=== PATIENT | male | born 1990 | race African-American/Black ===

== ENCOUNTER 2017-01-12 05:33 | Emergency (ER) | payer SELFPAY ==
[~2017-01-12] VITALS: Ht 177.8 cm; Wt 68.0 kg
[~2017-01-12 05:33] MED LIST: CYCL10TA9 PO; HYDR-34 PO; NAPR550T PO
[2017-01-12] MEDS ORDERED: RX-GENTAMICIN 0.3% OP OINT 3.5 GM TUBE OP STA (06:18)
[2017-01-12] MEDS ORDERED: RX-NAPROXEN (NAPROSYN) 250 MG TAB PPK#4 PO STA (06:18)
[2017-01-12] MEDS ORDERED: AMOX-358 PO (06:24)
[2017-01-12] MEDS ORDERED: GNT.3OO351 IT (06:24)
[2017-01-12] MEDS ORDERED: NAPR500T3 PO (06:24)
[2017-01-12] MEDS ORDERED: LIDO15SO2 MM (06:24)
--- NOTE | 2017-01-12 06:24 | ED EENT ---
History of Present Illness General Chief Complaint: Eye Problems Stated Complaint: EYE IRRIATION (BUG IN EYE), SWOLLEN JAW Nursing Triage Note: Pt. advises yesterday morning that a bug flew into his right eye. He states since the incident his eye has become progressively more swollen and painful. He also advises that he is experiencing right sided jaw pain. Source: patient History of Present Illness Time seen by provider: 06:02 Initial Comments PT STATES YESTERDAY MORNING, A BUG FLEW IN HIS RIGHT EYE WHILE HE WAS OUTSIDE SINCE THEN, HE HAS HAD PAIN, REDNESS, SWELLING, DRAINAGE AND MATTING TO RIGHT EYE NO VISION CHANGES SWELLING HAS GONE DOWN AROUND THE EYE, BUT WAS MATTED SHUT THIS AM AND COULDN'T SLEEP DUE TO EYE PAIN NO PRIOR PROBLEMS WITH EYES, DOES NOT WEAR GLASSES OR CONTACTS ALSO HAS HAD PAIN TO RIGHT LOWER MOLAR AND SWELLING TO LOWER JAW SINCE YESTERDAY WELL NO FEVER NO URI SYMPTOMS DOES NOT GO TO DENTIST PCP: [facility] Allergies and Home Medications Allergies Coded Allergies: No Known Drug Allergies (Unverified , 11/11/13) Home Medications Amoxicillin/Potassium Clav 1 Each Tablet, 1 EACH PO BID, #20 Prescribed by: PETEY ZIMMER on 01/12/17623 Cyclobenzaprine Hcl 10 Mg Tablet, 1 EACH PO TID, #14 Prescribed by: KIM CORONEL on 08/18/14 184 Gentamicin Sulfate 3.5 Gm Oint...g., 0.5 INCH IT QID, #3.5 Prescribed by: PETEY ZIMMER on 01/12/17623 Lidocaine HCl 15 Ml Solution, 5 ML MM Q 1-2 HOURS, #30 Prescribed by: PETEY ZIMMER on 01/12/17623 Naproxen 500 Mg Tablet, 500 MG PO BID, #20 Prescribed by: PETEY ZIMMER on 01/12/1724 Naproxen Sodium 550 Mg Tablet, 550 MG PO BID, #10 Prescribed by: KIM CORONEL on 08/18/14 184 Review of Systems Constitutional: no symptoms reported Eyes: See HPI, Denies Blurred Vision, Drainage, Foreign Body Sensation, Inflammation, Pain, Denies Photophobia, Denies Contact Lenses, Denies Glasses Ears: No Symptoms Reported Nose: no symptoms reported Mouth: see HPI, pain Throat: no symptoms reported Respiratory: no symptoms reported Cardiovascular: no symptoms reported Gastrointestinal: no symptoms reported Musculoskeletal: no symptoms reported Skin: no symptoms reported Neurological: No Symptoms Reported Hematologic/Lymphatic: No Symptoms Reported Immunological/Allergic: no symptoms reported Past Hcbwjuw-Btolha-Hvdcwl Hx Patient Social History Alcohol Use: Occasionally Uses Recreational Drug Use: No Smoking Status: Former Smoker Type Used: Cigarettes Recent Foreign Travel: No Contact w/Someone Who Travel: No Recent Infectious Disease Expo: No Recent Hopitalizations: No Seasonal Allergies Seasonal Allergies: No Surgeries HX Surgeries: Yes (ACL repair) Surgeries: Orthopedic Respiratory Hx Respiratory Disorders: No Cardiovascular Hx Cardiac Disorders: No Neurological Hx Neurological Disorders: No Genitourinary Hx Genitourinary Disorders: No Gastrointestinal Hx Gastrointestinal Disorders: No Musculoskeletal Hx Musculoskeletal Disorders: Yes (RIGHT KNEE ACL TEAR) Endocrine Hx Endocrine Disorders: No HEENT HX ENT Disorders: No Cancer Hx Cancer: No Psychosocial Hx Psychiatric Problems: No Integumentary HX Skin/Integumentary Disorder: No Blood Transfusions Hx Blood Disorders: No Physical Exam Vital Signs Vital Sign - Last 12Hours 01/12/17 06:06 Temp 98.4 Pulse 78 Resp 14 B/P (MAP) 133/93 Pulse Ox 97 O2 Delivery Room Air General Appearance: WD/WN, no apparent distress Eyes: right eye other (RIGHT CONJUCTIVA MARKEDLY INFLAMED, WITH PURULENT DRAINAGE AND SOME MATTING TO EYE. NO FOREIGN BODY NOTED. FLUORESCEIN STAIN DONE. ), left eye normal inspection, bilateral eye EOMI, bilateral eye PERRL Nose: normal inspection Mouth/Throat: other (RIGHT LOWER PREMOLAR DECAYED DOWN TO GUM WITH MODERATE SWELLING AND ERYTHEMA TO SURROUNDING GUM TISSUE. ALSO WITH MODERATE SWELLING TO RIGHT MANDIBLE. NO DISCRETE AREAS OF FLUCTUANCE. HAS EXTENSIVE DENTAL DECAY TO MANY TEETH ) Neck: non-tender, full range of motion, supple, lymphadenopathy (R) (MILD ANTERIOR), lymphadenopathy (L) (MILD ANTERIOR) Cardiovascular: regular rate, rhythm, no murmur Respiratory: normal breath sounds, no respiratory distress Neurologic/Psychiatric: receiving inspector II-XII nml as tested, no motor/sensory deficits, alert, normal mood/affect, oriented x 3 Skin: normal color, warm/dry Eye : Location: right eye (FLUORESCEIN STAIN) Anesthesia (gtts): Tetracaine Progress/Procedure Conclusion NO DYE UPTAKE, NO FOREIGN BODY, NO ABRASION NOTED. NO HYPHEMA Progress/Results/Core Measures Results/Orders My Orders Orders - MESHA,PETEY K DO Amoxicillin/Clavulanate Tablet (Augmenti (01/12/17 06:30) Rx-Gentamicin Ophth Oint (Rx-Gentamicin (01/12/17 06:18) Rx-Naproxen (Rx-Naprosyn) (01/12/17 06:18) Lidocaine 2% Viscous 15 Ml (Xylocaine Vi (01/12/17 06:30) Vital Signs/I&O Vital Sign - Last 12Hours 01/12/17 06:06 Temp 98.4 Pulse 78 Resp 14 B/P (MAP) 133/93 Pulse Ox 97 O2 Delivery Room Air Blood Pressure Mean: 106 Departure Impression Impression: Primary Impression: Acute conjunctivitis, right eye Additional Impression: DENTAL CARIES WITH ABSCESS Disposition: HOME, SELF-CARE Condition: Stable Departure-Patient Inst. Referrals: [facility] Patient Instructions: Conjunctivitis (Pinkeye) (DC), How to Use Eye Ointment, Tooth Abscess (DC), Tooth Decay, Adult (DC), Your Dental Health and Your Medical Health Add. Discharge Instructions: FOLLOW UP WITH DENTIST SOON POSSIBLE FREQUENT SALT WATER SWISHES DO NOT RUB EYE [facility] IF NO BETTER All discharge instructions reviewed with patient and/or family. Voiced understanding. Scripts Naproxen (Naproxen) 500 Mg Tablet 500 MG PO BID, #20 TAB Prov: PETEY ZIMMER DO 01/12/17 Lidocaine HCl (Lidocaine HCl Viscous) 15 Ml Solution 5 ML MM Q 1-2 HOURS for Pain, #30 ML Prov: PETEY ZIMMER DO 01/12/17 Gentamicin Sulfate (Gentak) 3.5 Gm Oint...g. 0.5 INCH IT QID, #3.5 TUBE Prov: PETEY ZIMMER DO 01/12/17 Amoxicillin/Potassium Clav (Augmentin 875-125 Tablet) 1 Each Tablet 1 EACH PO BID for INFECTION, #20 TAB Prov: PETEY ZIMMER DO 01/12/17 PETEY ZIMMER DO January 12, 2017 06:24
[2017-01-12] MEDS ORDERED: LIDOCAINE 2% VISCOUS 15 ML UDC PO ONE (06:30)
[2017-01-12] MEDS ORDERED: AUGMENTIN 875 MG TAB (AMOXICILLIN/CLAVULANATE) PO SCH (06:30)
[2017-01-12] MEDS ORDERED: FLUORESCEIN (FLUOR-I-STRIPS) 1 MG STRP ONE (06:43)
[2017-01-12] MEDS ORDERED: TETRACAINE 0.5% OPHTH SOLN 4 ML BTL (SINGLE DOSE ONLY) ONE (06:44)
[2017-01-12 06:45] VITALS: BP 133/93
== END 2017-01-12 06:45 | disposition home or self-care (01) ==
LOC: EDUNIT# 05:33 → ER 05:38
DX: H10.31 Unspecified acute conjunctivitis, right eye (principal); K04.7 Periapical abscess without sinus; K02.9 Dental caries, unspecified
CPT/HCPCS: 99283